=== PATIENT | female | born 1950 | race American Indian/Alaskan Native ===

== ENCOUNTER 2017-02-07 12:35 | Outpatient (CLI) | payer MEDICARE, OTHER ==
--- NOTE | 2017-02-07 13:30 | XRay Report ---
RIGHT FEMUR: HISTORY: Bone pain. AP and lateral views of the femur demonstrate normal mineralization and contours for this patient's age. No destructive changes are noted and the adjacent soft tissues are normal. IMPRESSION: Normal right femur.
--- NOTE | 2017-02-07 13:30 | XRay Report ---
RIGHT HIP, 2 views: History: Bone pain. The bony architecture is intact without evidence of fracture or dislocation. No significant soft tissue abnormality is seen. IMPRESSION: Normal right hip.
== END 2017-02-07 12:36 | disposition home or self-care (01) ==
LOC: SPVIMAG 12:35
PROVIDERS: ATTEND Internal Medicine Hematology & Oncology
DX: M25.551 Pain in right hip (principal); M79.651 Pain in right thigh; D64.9 Anemia, unspecified; C81.90 Hodgkin lymphoma, unspecified, unspecified site; C90.00 Multiple myeloma not having achieved remission; D47.2 Monoclonal gammopathy

== ENCOUNTER 2017-03-30 12:55 | Outpatient (CLI) | payer MEDICARE, OTHER ==
--- NOTE | 2017-03-30 22:58 | XRay Report ---
FINAL REPORT EXAM: XR BONE SURVEY METASTATIC HISTORY: HODGKINS LYMPHOMA TECHNIQUE: Bone survey Images of the skull, cervical thoracic and lumbar spine, pelvis, left upper extremities and left lower extremities, chest and pelvis were obtained PRIORS: None. FINDINGS: Lytic or blastic bony lesions are identified. There are multilevel degenerative changes throughout the spine. Which there are compression fractures of L1, L3 and L5 age indeterminate. If continuing clinical concern MRI is suggested for further evaluation. IMPRESSION: No definitive plain film evidence for metastatic disease Multiple lumbar compression fractures age indeterminate. If continuing clinical concern MRI suggested for further evaluation
== END 2017-03-30 12:56 | disposition home or self-care (01) ==
LOC: SPVIMAG 12:55
PROVIDERS: ATTEND Internal Medicine Hematology & Oncology
DX: C81.90 Hodgkin lymphoma, unspecified, unspecified site (principal); M48.56XA Collapsed vertebra, not elsewhere classified, lumbar region, initial encounter for fracture; M47.896 Other spondylosis, lumbar region; D64.9 Anemia, unspecified
CPT/HCPCS: 77074